=== PATIENT | female | born 1995 | race Caucasian/White ===

== ENCOUNTER 2022-02-14 22:21 | Emergency (ER) | payer OTHER ==
[2022-02-14 23:19] LABS: HEMOGLOBIN 11.4 gm/dl (12.3-15.3); RED BLOOD COUNT 4.03 M/UL (4.00-5.10); WHITE BLOOD COUNT 11.1 K/UL (4.5-11.0)
[2022-02-14 23:34] LABS: BUN/CREATININE RATIO 8 (0-10)
[2022-02-15] MEDS ORDERED: OMNICEF 300 MG300 MG PO (00:53)
[2022-02-16 23:08] LABS: CHLAMYDIA TRACHOMATIS, NAA Negative (Negative); NEISSERIA GONORRHOEAE, NAA Negative (Negative)
== END 2022-02-15 01:11 | disposition home or self-care (01) ==
LOC: ER1 22:21
PROVIDERS: Family Medicine; Physician Assistant Medical
DX: O98.312 Other infections with a predominantly sexual mode of transmission complicating pregnancy, second trimester (principal); O99.332 Smoking (tobacco) complicating pregnancy, second trimester; F17.210 Nicotine dependence, cigarettes, uncomplicated; Z88.2 Allergy status to sulfonamides; Z3A.23 23 weeks gestation of pregnancy
CPT/HCPCS: 80053; 81001; 85025; 99283

== ENCOUNTER 2022-05-08 23:10 | Outpatient (CLI) | payer OTHER ==
[~2022-05-08 23:10] MED LIST: OMNICEF 300 MG300 MG PO
== END 2022-05-09 00:22 | disposition home or self-care (01) ==
LOC: GENOP 23:10
PROVIDERS: Obstetrics & Gynecology
DX: O99.891 Other specified diseases and conditions complicating pregnancy (principal); R10.9 Unspecified abdominal pain; M54.9 Dorsalgia, unspecified; R60.0 Localized edema; Z3A.35 35 weeks gestation of pregnancy
CPT/HCPCS: 80307; 81001; G0463

== ENCOUNTER 2022-06-01 18:37 | Inpatient (IN) | payer OTHER ==
[~2022-06-01] VITALS: Ht 175.3 cm; Wt 87.1 kg
[2022-06-01 21:27] LABS: RED BLOOD COUNT 3.97 M/UL (4.00-5.10); WHITE BLOOD COUNT 9.9 K/UL (4.5-11.0)
[2022-06-02] MEDS ORDERED: COLACE100 MG PO (06:22)
[2022-06-02] MEDS ORDERED: FERROUS SULFAT325 MG PO (06:22)
[2022-06-02] MEDS ORDERED: IBUPROFEN600 MG PO (06:22)
[2022-06-03 06:02] LABS: HEMOGLOBIN 8.4 gm/dl (12.3-15.3)
== END 2022-06-04 16:49 | disposition home or self-care (01) | DRG 806 ==
LOC: OB 18:37
PROVIDERS: Obstetrics & Gynecology; ADMIT Obstetrics & Gynecology
PROC: 10E0XZZ Delivery of Products of Conception, External Approach (ICD-10-PCS; principal; 2022-06-01)
PROC: 10907ZC Drainage of Amniotic Fluid, Therapeutic from Products of Conception, Via Natural or Artificial Opening (ICD-10-PCS; 2022-06-01)
PROC: 10H07YZ Insertion of Other Device into Products of Conception, Via Natural or Artificial Opening (ICD-10-PCS; 2022-06-01)
PROC: 4A1HXCZ Monitoring of Products of Conception, Cardiac Rate, External Approach (ICD-10-PCS; 2022-06-01)
DX: O98.42 Viral hepatitis complicating childbirth (principal); D62 Acute posthemorrhagic anemia; Z37.0 Single live birth; O99.324 Drug use complicating childbirth; O36.5930 Maternal care for other known or suspected poor fetal growth, third trimester, not applicable or unspecified; B19.20 Unspecified viral hepatitis C without hepatic coma; Z3A.38 38 weeks gestation of pregnancy; O99.334 Smoking (tobacco) complicating childbirth; F17.210 Nicotine dependence, cigarettes, uncomplicated; Z28.310 Unvaccinated for COVID-19; O99.02 Anemia complicating childbirth; F19.10 Other psychoactive substance abuse, uncomplicated
CPT/HCPCS: 36415; 80307; 81001; 85014; 85018; 85025; J0595; J2590

== ENCOUNTER 2022-07-07 22:11 | Emergency (ER) | payer OTHER ==
[~2022-07-07 22:11] MED LIST changes: +COLACE100 MG PO; +FERROUS SULFAT325 MG PO; +IBUPROFEN600 MG PO
[2022-07-08] MEDS ORDERED: PROVENTIL HFA6.7 GM INH (01:26)
[2022-07-08] MEDS ORDERED: DIMETAPP COLD237 M1 PO (01:26)
== END 2022-07-08 01:45 | disposition home or self-care (01) ==
LOC: ER1 22:11
DX: J40 Bronchitis, not specified as acute or chronic (principal); J02.9 Acute pharyngitis, unspecified; Z20.822 Contact with and (suspected) exposure to COVID-19; F17.200 Nicotine dependence, unspecified, uncomplicated; Z88.2 Allergy status to sulfonamides
CPT/HCPCS: 0240U; 71046; 87081; 87880; 99283